=== PATIENT | male | born 1985 | race Two or more races ===

== ENCOUNTER 2017-02-03 23:59 | Emergency (ER) | payer OTHER | END 2017-02-04 | disposition left against medical advice (07) | LOC: CED 23:59 | DX: Z53.21 Procedure and treatment not carried out due to patient leaving prior to being seen by health care provider (principal) ==

== ENCOUNTER 2017-07-02 11:08 | Emergency (ER) | payer OTHER ==
--- NOTE | ~2017-07-02 | CR243 ---
[facility] A Service of [facility] & [facility] RADIOLOGY TEXT RESULTS PATIENT: LYDIA CHRISTENSEN LOCATION: CFTX : [birth year] UNIT #: [id number] AGE: [address]: Gem Davalos SEX: M ORDER DR: [id number] [facility]. [place], [place] [address] [id number] E MR#: [id number] #: [id number] NAME: LYDIA CHRISTENSEN : 1985 SEX: M STUDY DATE/TIME: 07/02/2017 12:49 UNIT: [facility] ROOM: STUDY DESCRIPTION: CR Thoracic Spine 3 Views Attending Physician: Gem Davalos Pa-C Ordering Physician: Ed Kvng Badillo M.D. Primary Care Physician: No Primary Care Physician MEDICAL IMAGING REPORT This report is preliminary unless electronic signature is present EXAM Thoracic series 07/02/17. INDICATIONS Pain in the mid back. No known injury. Symptoms began today.; 3 views of the thoracic spine. COMPARISON No comparisons. FINDINGS Examination is negative. No acute fracture, malalignment or significant degenerative change. IMPRESSION 1. Negative. Dictated by... Toi Pope M.D. THIS IS AN ELECTRONICALLY VERIFIED REPORT Toi Pope M.D. at 07/03/2017 1:50 PM Jose TD: 07/03/2017 08:27 JOB #: [id number] MEDICAL IMAGING REPORT Page 1 of 1 COPY
== END 2017-07-02 13:50 | disposition home or self-care (01) ==
LOC: CED 11:08 → CFTX 11:08
DX: S29.012A Strain of muscle and tendon of back wall of thorax, initial encounter (principal); F17.200 Nicotine dependence, unspecified, uncomplicated; X58.XXXA Exposure to other specified factors, initial encounter; Y92.9 Unspecified place or not applicable
CPT/HCPCS: 72072; 99283